=== PATIENT | male | born 1990 | race African-American/Black ===

== ENCOUNTER 2017-02-09 17:57 | Emergency (ER) | payer BC ==
[~2017-02-09] VITALS: Ht 180.3 cm; Wt 104.3 kg
[~2017-02-09 17:57] MED LIST: NOHOMEMEDICATIONS
[2017-02-09 18:15] LABS: HEMATOCRIT 42.7 % (42.0-52.0); HEMOGLOBIN 14.5 gm/dL (14.0-18.0); MCH 28.7 pg (26.0-34.0); MCHC 33.9 g/dL (28.0-37.0); MCV 84.7 fL (80.0-100.0); RBC 5.05 mil/uL (4.50-6.00); RDW 12.5 % (10.5-14.5); WBC 12.3 thou/uL (4.0-11.0)
[2017-02-09 18:22] LABS: CALCIUM 9.2 mg/dL (8.5-10.1); CREATININE 1.3 mg/dL (0.6-1.3); POTASSIUM 3.3 mmol/L (3.5-5.1)
[2017-02-09 19:05] VITALS: BP 148/89
== END 2017-02-09 19:15 | disposition short-term general hospital (02) ==
LOC: ER 17:57
PROVIDERS: Emergency Medicine
DX: S11.89XA Other open wound of other specified part of neck, initial encounter (principal); S27.0XXA Traumatic pneumothorax, initial encounter; W34.010A Accidental discharge of airgun, initial encounter; Y93.89 Activity, other specified; Y92.89 Other specified places as the place of occurrence of the external cause; Y99.8 Other external cause status